=== PATIENT | female | born 1960 | race Caucasian/White ===

== ENCOUNTER 2017-11-09 10:58 | Emergency (ER) | payer BC ==
--- NOTE | 2017-11-09 11:13 | UC ---
Hand/Wrist HPI - HPI Summary HPI Summary: Patient comes to urgent care today with chief chief complaint of right index finger pain and distal joints after shutting finger in car door last night - History Of Current Complaint Chief Complaint: UCUpperExtremity Stated Complaint: FINGER INJURY Time Seen by Provider: 11/09/17 11:12 Hx Obtained From: Patient ?: No Mechanism Of Injury: Shut in car door Onset/Duration: Sudden Onset, Lasting Days - 1 Severity Initially: Moderate Severity Currently: Moderate Character Of Pain: Aching, Throbbing Aggravating Factor(s): Movement Alleviating Factor(s): Other - Got relief with one half a Tylenol with codeine this morning Associated Signs And Symptoms: Positive: Swelling, Redness Related History: Dominant Hand Right - Allergies/Home Medications Allergies/Adverse Reactions: Allergies Allergy/AdvReac Type Severity Reaction Status Date / Time Penicillins Allergy Hives Verified 11/09/17 11:13 Home Medications: Home Medications Acetaminop/Codeine 30 MG TAB* [Tylenol/Codeine 30 MG TAB*] 1 tab PO Q6H PRN 10/28 [History Confirmed 11/09/17] PMH/Surg Hx/FS Hx/Imm Hx Previously Healthy: Yes - Surgical History Surgical History: Yes Surgery Procedure, Year, and Place: Tib/Fib fracture repair, LAPAROSCOPIC PROCEDURES OF RT OVARY, - Family History Known Family History: Positive: None - Social History Occupation: Employed Full-time Lives: With Family Alcohol Use: Weekly Alcohol Amount: Couple of glasses a couple times a week Substance Use Type: None Review of Systems Constitutional: Negative Skin: Negative Eyes: Negative ENT: Negative Respiratory: Negative Cardiovascular: Negative Gastrointestinal: Negative Genitourinary: Negative Motor: Decreased ROM - distal right index finger Neurovascular: Negative Musculoskeletal: Negative, Arthralgia Neurological: Negative Psychological: Negative Is Patient Immunocompromised?: No All Other Systems Reviewed And Are Negative: Yes Physical Exam Triage Information Reviewed: Yes Appearance: Well-Appearing, No Pain Distress, Well-Nourished Vital Signs Reviewed: Yes Eye Exam: Normal Eyes: Positive: Conjunctiva Clear ENT Exam: Normal ENT: Positive: Normal ENT inspection, Hearing grossly normal. Negative: Trismus , Muffled voice, Hoarse voice, Dental tenderness, Sinus tenderness Dental Exam: Normal Neck exam: Normal Neck: Positive: Supple, Nontender, No Lymphadenopathy Respiratory Exam: Normal Respiratory: Positive: Normal breath sounds, No respiratory distress, No accessory muscle use Cardiovascular Exam: Normal Cardiovascular: Positive: RRR, Pulses Normal, Brisk Capillary Refill Musculoskeletal Exam: Other Musculoskeletal: Positive: Strength Limited @, ROM Limited @ - right index finger dip, Edema @ - right distal second finger Neurological Exam: Normal Neurological: Positive: Alert, Muscle Tone Normal Psychological Exam: Normal Skin Exam: Normal Diagnostics - Radiology No standard instances Xray Interpretation: Positive (See Comments) - Nondisplaced dorsal plate fracture of the DIP joint of the second finger right hand Radiology Interpretation Completed By: ED Physician, Radiologist Hand/Wrist Course/Dx - Course Course Of Treatment: Rest ice elevation splint ibuprofen for mild to moderate pain, codeine for more severe pain follow up with Dr. Chung orthopedics in 5 days - Differential Dx/Diagnosis Provider Diagnoses: non displaced dip dorsal plate fracture, elevated blood pressure without diagnosis of hypertension Discharge - Discharge Plan Condition: Stable Disposition: HOME Prescriptions: Acetaminop/Codeine 30 MG TAB* [Tylenol/Codeine 30 MG TAB*] 1 tab PO Q6H PRN #10 tab MDD 4 PRN Reason: Pain Patient Education Materials: Finger Fracture (ED), Hypertension (ED), R.I.C.E. Treatment (ED) Referrals: Frantz Bernardo MD [Primary Care Provider] - 2 Weeks Ilda Chung MD [Medical Doctor] - 5 Days
[2017-11-09 11:22] VITALS: BP 140/87
--- NOTE | 2017-11-09 11:47 | RAD ---
Indication: Right finger injury. 3 views of the right index finger demonstrates fracture through the base of the distal phalanx. No significant displacement is noted. This is most prominent in the dorsal plate of the proximal and of the distal phalanx. IMPRESSION: There is likely dorsal plate fracture proximal end of the distal phalanx of the index finger.
== END 2017-11-09 12:10 | disposition home or self-care (01) ==
LOC: UCEAST 10:58
DX: S67.190A Crushing injury of right index finger, initial encounter (principal); W23.0XXA Caught, crushed, jammed, or pinched between moving objects, initial encounter; Y93.9 Activity, unspecified; Y92.810 Car as the place of occurrence of the external cause; R03.0 Elevated blood-pressure reading, without diagnosis of hypertension; Z88.0 Allergy status to penicillin
CPT/HCPCS: 73140; 99213; G0463

== ENCOUNTER 2018-06-24 10:07 | Observation (INO) | payer BC, OTHER ==
--- NOTE | 2018-06-24 10:31 | ED ---
HPI Chest Pain - HPI Summary HPI Summary: A 57 y/o F presents to ED with c/o intermittent episodes of CP this . She saw her PCP this AM who did an EKG and then referred her to ED for further evaluation. Pt states over the weekend, she was in bed going to sleep and noticed irregular heartbeats and lightheadedness. The episode lasted about 20 minutes and then spontaneously resolved. She exercised the following morning, and experienced palpitations and SOB within the first 5 minutes which is completely unusual for her. Denies wheezing, SALDIVAR, blurry vision, neck pain, abd pain, v/d, rashes. Pt took baby aspirin daily for past two days. She denies having prior episodes of CP. She has had episodes of GERD, but states these sx are not that. Pt travelled by plane and hiked to high elevations last week. She also states a recent cold but it was not severe and it has since resolved. Non- smoker. - History of Current Complaint Chief Complaint: EDChestPainROMI Hx Obtained From: Patient Onset/Duration: Started Days Ago, Still Present - mildly Timing: Intermittent, Lasting Minutes - 20 mins Initial Severity: Moderate Current Severity: Mild Pain Intensity: 2 Pain Scale Used: 0-10 Numeric Character: Dull/Aching Associated Signs and Symptoms: Positive: Shortness of Breath, Lightheadedness, Palpitations, Other: - neg: neck pain, rash. Negative: Vision Changes, Headaches, Abdominal Pain, Vomiting, Wheezing - Allergy/Home Medications Allergies/Adverse Reactions: Allergies Allergy/AdvReac Type Severity Reaction Status Date / Time Penicillins Allergy Nausea Verified 06/24/18 10:17 Home Medications: Home Medications Eletriptan HBr [Relpax] 20 mg PO DAILY PRN 06/24/18 [History Confirmed 06/24/18] diazePAM [Diazepam] 5 mg PO DAILY PRN 06/24/18 [History Confirmed 06/24/18] PMH/Surg Hx/FS Hx/Imm Hx Previously Healthy: Yes Endocrine/Hematology History: Denies: Hx Diabetes, Hx Thyroid Disease Cardiovascular History: Denies: Hx Hypertension Respiratory History: Denies: Hx Asthma, Hx Chronic Obstructive Pulmonary Disease (COPD) - Cancer History Hx Chemotherapy: No Hx Radiation Therapy: No - Surgical History Surgery Procedure, Year, and Place: Tib/Fib fracture repair, LAPAROSCOPIC PROCEDURES OF RT OVARY, Infectious Disease History: No Infectious Disease History: Reports: Hx Shingles Denies: Hx Hepatitis, Hx Human Immunodeficiency Virus (HIV), History Other Infectious Disease, Traveled Outside the [place] in Last 30 Days - Family History Known Family History: Positive: Other - pos: breast CA - Social History Occupation: Employed Full-time Lives: With Family Alcohol Use: Weekly Alcohol Amount: Couple of glasses a couple times a week Substance Use Type: Reports: None Smoking Status (MU): Former Smoker Review of Systems Negative: Fever Negative: Blurred Vision Negative: Epistaxis Positive: Palpitations, Chest Pain Positive: Shortness Of Breath. Negative: Other - neg: wheezing Negative: Abdominal Pain, Vomiting, Diarrhea Negative: Arthralgia - neck pain Negative: Rash Neurological: Other - pos: lightheadedness Negative: Headache Psychological: Normal All Other Systems Reviewed And Are Negative: No Physical Exam - Summary Physical Exam Summary: Appearance: Alert, conversive, nontoxic appearing Skin: Warm, dry, no mottling, no rashes, no contusions HEENT: EOMI, PERRL, moist mucous membranes Neck: No masses on the neck, supple Respiratory: Clear to auscultation, breath sounds present, no rales, no rhonchi , no wheezes Cardiovascular: RRR, pulses are symmetrical in both lower and upper extremities Abdomen: Soft, non-tender Bowel Sounds: Present Musculoskeletal: No CVA tenderness, no obvious deformity, moving all extremities in a grossly normal manner Neurological: A&Ox3, CN II-XII Intact, moving all extremities symmetrically Psychiatric: Normal affect and mood Triage Information Reviewed: Yes Vital Signs On Initial Exam: Initial Vitals Temp Pulse Resp BP Pulse Ox 97.3 F 63 16 169/82 100 06/24/18 10:13 06/24/18 10:13 06/24/18 10:13 06/24/18 10:13 06/24/18 10:13 Vital Signs Reviewed: Yes Diagnostics - Vital Signs Vital Signs Temp Pulse Resp BP Pulse Ox 06/24/18 10:13 97.3 F 63 16 169/82 100 - Laboratory Result Diagrams: 06/24/18 10:38 06/24/18 10:38 Lab Statement: Any lab studies that have been ordered have been reviewed, and results considered in the medical decision making process. - Radiology CXR Xray Interpretation: No Acute Changes - IMPRESSION: Negative for acute dz. ED provider has reviewed this report. Radiology Interpretation Completed By: Radiologist - EKG 1035 Cardiac Rate: NL - 61 bpm EKG Rhythm: Sinus Rhythm ST Segment: Normal EKG Interpretation: Nml QRS. Nml QTc. Nml axis. Chest Pain Course/Dx - Course Course Of Treatment: Pt is a healthy 57 y/o F referrefed from PCP presenting with c/o intermittent episodes of CP this weekend The episode of palpitations and lightheadedness upon going to bed which lasted about 20 minutes and then spontaneously resolved. She exercised the following morning, and experienced palpitations and SOB within the first 5 minutes which is completely unusual for her. D-dimer is negative, trop is negative, CXR is negative. - Diagnoses Provider Diagnoses: Chest pain - Provider Notifications Discussed Care Of Patient With: Pam Madrigal - hospitalist Time Discussed With Above Provider: 11:31 Instructed by Provider To: Admit As Inpatient Discharge - Sign-Out/Discharge Documenting (check all that apply): Patient Departure - ADM - Discharge Plan Condition: Stable Disposition: ADMITTED TO [facility] Referrals: Frantz Bernardo MD [Primary Care Provider] - - Billing Disposition and Condition Condition: STABLE Disposition: Admitted to [facility] - Attestation Statements Document Initiated by Scribe: Yes Documenting Scribe: Johnie Mendieta Provider For Whom Scribe is Documenting (Include Credential): Dr. Claudia Colvin MD Scribe Attestation: Johnie Hernandez, scribed for Dr. Claudia Colvin MD on 06/24/18 at 1153. Scribe Documentation Reviewed: Yes Provider Attestation: The documentation as recorded by the Johnie cooper accurately reflects the service I personally performed and the decisions made by me, Dr. Claudia Colvin MD
[2018-06-24 10:54] LABS: ABS Basophils 0 10^3/ul (0-0.2); ABS Eosinophils 0.1 10^3/ul (0-0.6); ABS Lymphocytes 1.5 10^3/ul (1.0-4.8); ABS Monocytes 0.4 10^3/ul (0-0.8); ABS Neutrophils 3.3 10^3/ul (1.5-7.7); ABS Nucleated RBC 0 10^3/ul; Eosinophil % 2.1 % (0-6); Hematocrit 41 % (35-47); Lymphocyte % 27.2 % (25-47); Mean Corpuscular HGB Conc 34 g/dl (31-36); Mean Corpuscular Hemoglobin 31 pg (27-31); Mean Corpuscular Volume 91 fL (80-97); Mean Platelet Volume 8.2 um3 (7.4-10.4); Nucleated Red Blood Cells % 0.2; Platelet Count 228 10^3/ul (150-450); Red Blood Count 4.54 10^6/ul (4.00-5.40); Red Cell Distribution Width 13 % (10.5-15); White Blood Count 5.4 10^3/ul (3.5-10.8)
--- NOTE | 2018-06-24 11:00 | RAD ---
INDICATION: Chest pain. COMPARISON: Comparison is made with a prior chest x-ray study from October 29, 2007. TECHNIQUE: A portable view of the chest was obtained. FINDINGS: Cardiac and mediastinal contours appear to be within normal limits. The lungs are clear. No pleural effusion or pneumothorax is seen. IMPRESSION: NO EVIDENCE FOR ACUTE DISEASE.
[2018-06-24 11:08] LABS: EGFR Non-African American 84.3 (>60)
[2018-06-24] MEDS ORDERED: Aspirin TAB* 325 MG PO ONE (11:15)
[2018-06-24] MEDS ORDERED: Aspirin EC TAB* 81 MG TAB.EC ONE (12:16)
[2018-06-24] MEDS ORDERED: Morphine INJ* 4 MG/ML 1 ML SYRINGE (NEW SYRINGE VERSION) IV PRN (12:28)
[2018-06-24] MEDS ORDERED: Albuterol 2.5 MG/3 ML NEB.SOL* (0.083%) INH PRN (12:28)
[2018-06-24] MEDS ORDERED: Al Hydrox/Mg Hydrox/Simet LIQ* 30 ML UDC PO PRN (12:28)
[2018-06-24] MEDS ORDERED: Ondansetron INJ* 2 MG/ML VIAL IV PRN (12:28)
[2018-06-24] MEDS ORDERED: Magnesium Hydroxide LIQ* 30 ML UDC PO PRN (12:28)
[2018-06-24] MEDS ORDERED: Acetaminophen TAB* 325 MG PO PRN (12:28)
[2018-06-24] MEDS ORDERED: ELETRIPTAN HBR 20 MG PO PRN (12:31)
[2018-06-24] MEDS ORDERED: Diazepam TAB(*) 5 MG PO PRN (12:31)
[2018-06-24] MEDS ORDERED: Nitroglycerin TAB 0.4 MG* 0.4 MG TAB SL ONE (12:32)
--- NOTE | 2018-06-24 15:39 | HP ---
AMENDED REPORT NOW INCLUDES COSIGNER DESIGNATION CC: Dr. Bernardo.* ADMISSION HISTORY AND PHYSICAL: DATE OF ADMISSION: 06/24/18 PATIENT OF ADMITTING HOSPITALIST: Dr. Pam Madrigal.* (DICTATED BY JANIE DIAZ) PRIMARY CARE PROVIDER: Dr. Frantz Bernardo. CHIEF COMPLAINT: Chest pain. HISTORY OF PRESENT ILLNESS: Mrs. Mejia is a 57-year-old female with past medical history significant for intermittent asthma, as well as migraine headaches, who presented to the emergency room today with 3 to 4 days history of intermittent chest pain. The patient notes that she has experienced some chest tightness on and off, usually starts few minutes during her workouts. She describes it as chest tightness localized to the substernal area without any radiation, associated with shortness of breath and feeling as she was "winded" after few minutes of exercise. She is a relatively healthy female, who works out on a regular basis and she has never had any similar symptoms in the past. She also noticed some palpitation and all her symptoms usually subsided when she sits down and rests for a few minutes. She has no prior history of coronary artery disease or myocardial infarction. She denied any family history of heart attacks or coronary artery disease as well. She only has history of asthma, for which it is very intermittent and she has not been taken any inhalers for it on a regular basis. She also has history of migraine headaches, for which she takes a triptan treatment as needed. Given her symptoms, she presented to the emergency room for evaluation. She had laboratory workup that revealed normal CBC and normal chemistry panel, as well as a negative troponin. Her EKG showed a sinus rhythm without any evidence of ST changes. Given her chest pain that usually triggered by exertion. We were asked to see the patient for further evaluation and to consider admission for observation and stress testing tomorrow. PAST MEDICAL HISTORY: As mentioned above, significant for asthma, migraine. PAST SURGICAL HISTORY: Significant for: 1. Right tib-fib fracture repair with a héctor. 2. Left breast lumpectomy with benign findings. 3. Laparoscopy for ovarian cyst x2 back in the late 80s. CURRENT MEDICATIONS: Her medications at home include: 1. Acetaminophen/codeine 30 mg tablets one tablet p.o. b.i.d. p.r.n. for pain or headache. 2. Diazepam 5 mg p.o. daily. 3. Eletriptan 20 mg p.o. daily as needed for migraine headaches. ALLERGIES: She is allergic to PENICILLIN, that causes nausea. FAMILY HISTORY: Reviewed and noncontributory. 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 She is and has three children, all grown up and out of town. She is a nonsmoker, who drinks alcohol occasionally and caffeine intake is minimal. She wishes to be a full code and listed her as her healthcare proxy. REVIEW OF SYSTEMS: See HPI, otherwise 12 points review of systems were examined , they were essentially negative. PHYSICAL EXAMINATION GENERAL: She is a pleasant healthy-appearing middle-aged female, in no acute distress or discomfort at the time of admission. VITAL SIGNS: Reveal temperature of 97.3, pulse of 63, blood pressure of 140/87 , respiration of 16 with O2 sat of 100% on room air. HEENT: Head is normocephalic, atraumatic. Sclerae are anicteric. PERRLA. EOMs intact. Oropharynx is pink and moist. NECK: Supple. Trachea midline. No cervical adenopathy, thyromegaly or JVD. LUNGS: Clear to auscultation bilaterally. HEART: Regular rate and rhythm. Normal S1 and S2 without rubs, murmurs, or gallops. BREASTS: Exam deferred at this time. BACK: Normal curvature. No CVA tenderness. ABDOMEN: Soft, nontender, nondistended. No hernias, masses, or hepatosplenomegaly. Bowel sounds were normoactive in all quadrants. EXTREMITIES: Without cyanosis, clubbing or edema. NEUROLOGIC: She is awake, alert, and oriented x3. Handgrip is equal bilaterally and tongue is midline. Sensation is intact throughout. RECTAL: Exam deferred at this time. LABORATORY WORKUP: CBC with a white count of 5,000, hemoglobin 14, hematocrit 41, and platelets of 228. Her chemistry panel essentially within normal limits. LFTs within normal limits. C-reactive protein 2.1. Troponin is 0. TSH is 1.25. ACCESSORY DIAGNOSTIC DATA: Chest x-ray revealed no acute cardiopulmonary issues and EKG without any ST changes. ASSESSMENT: A 57-year-old relatively healthy female with past medical history of migraine headaches and intermittent asthma, who presents to the emergency room with intermittent exertional chest pain for the last 3 to 4 days, found to have a flat troponin and no EKG changes will be admitted for observation status under hospitalist services to telemetry unit for the following assessment and plan. 1. Chest pain. The patient will be admitted to rule out acute coronary syndrome. I will trend her troponin, repeat EKG in the morning and provide oxygen supplementation as needed. She is chest pain free at rest, but will provide morphine and nitroglycerin as needed if she did experience any chest pain. All her labs were normal and I will go ahead and check her lipid panel tomorrow as long as she is fasting. We will plan for a stress test tomorrow and follow her up accordingly. 2. History of asthma. The patient experienced no wheezing or any asthma exacerbation. However, I will continue to cover her with albuterol nebulizer as needed. 3. History of migraine headaches. I will continue her home medications as needed if she did experience any migraines 4. DVT prophylaxis. She is at moderate risk and will be covered with SCDs. 5. Code status. She wishes to be a full code. 6. Disposition. Admit to telemetry for trending troponins and repeat EKG and a stress test in the morning, rule out acute coronory syndrome. TIME SPENT: Approximately 60 minutes were spent admitting this patient for which greater than 50% of this time on taking history and performing physical exam. I went on and discussed the case with my attending, who agreed to plan of care and will follow her up accordingly. JANIE DIAZ [id number]/[facility] #: [id number] TOM
[2018-06-25 06:53] LABS: ABS Basophils 0 10^3/ul (0-0.2); ABS Eosinophils 0.2 10^3/ul (0-0.6); ABS Lymphocytes 1.7 10^3/ul (1.0-4.8); ABS Monocytes 0.4 10^3/ul (0-0.8); ABS Neutrophils 2.9 10^3/ul (1.5-7.7); ABS Nucleated RBC 0 10^3/ul; Eosinophil % 3.2 % (0-6); Hematocrit 40 % (35-47); Hemoglobin 13.6 g/dl (12.0-16.0); Lymphocyte % 32.5 % (25-47); Mean Corpuscular HGB Conc 34 g/dl (31-36); Mean Corpuscular Hemoglobin 31 pg (27-31); Mean Corpuscular Volume 90 fL (80-97); Mean Platelet Volume 8.3 um3 (7.4-10.4); Nucleated Red Blood Cells % 0.1; Platelet Count 231 10^3/ul (150-450); Red Blood Count 4.43 10^6/ul (4.00-5.40); Red Cell Distribution Width 13 % (10.5-15); White Blood Count 5.2 10^3/ul (3.5-10.8)
[2018-06-25 06:57] LABS: EGFR Non-African American 84.3 (>60)
[2018-06-25 10:15] VITALS: BP 119/69
--- NOTE | 2018-06-25 10:47 | RAD ---
HISTORY: chest pain COMPARISONS: None TECHNIQUE: A 1 day stress/rest myocardial perfusion study was performed, with exercise stress. The exercise portion was performed using the Anish protocol, for a total METs of 12.8 . The stress portion was monitored by Dr. Miranda. Gated SPECT imaging was performed, with CT-based attenuation correction DOSE: Stress: Technetium 99m tetrofosmin, 25.4 millicuries, injected at 9:00 AM on June 25, 2018 Rest: Technetium 99m tetrofosmin, 10.83 millicuries, injected at 6:30 AM on June 25, 2018 Pharmacologic agent: None FINDINGS: CARDIAC MONITORING: Peak heart rate of 1 65 bpm, 102% of predicted. EF: 75 % TID: 0.92 MOTION: Normal motion, with normal wall thickening. PERFUSION: There are no fixed or reversible perfusion defects. OTHER: None IMPRESSION: NO FIXED OR REVERSIBLE PERFUSION DEFECTS. ASSESSMENT: LOW RISK. Based on imaging criteria from ACC/AHA 2002. Guideline Update for the Management of Patient's with Chronic Stable Angina, table 23. Noninvasive Risk Stratification.
--- NOTE | 2018-06-26 04:49 | DS ---
AMENDED REPORT NOW INCLUDES ADDENDUM AND COSIGNER DESIGNATION CC: Dr. Frantz Bernardo * DISCHARGE SUMMARY: DATE OF ADMISSION: 06/24/18 DATE OF DISCHARGE: 06/25/18 PRIMARY CARE PROVIDER: Dr. Frantz Bernardo. ATTENDING PHYSICIAN: Dr. Lopez * (dictated by Katy Connor NP). PRIMARY DIAGNOSIS: Chest pain. SECONDARY DIAGNOSES: 1. Asthma. 2. Migraines. CONSULTATIONS WHILE IN THE HOSPITAL: There were no consultations. PROCEDURES WHILE IN THE HOSPITAL: No procedures. STUDIES WHILE IN THE HOSPITAL: 1. EKG: Unremarkable. 2. Stress test: Low risk based on imaging criteria from ACC/AHA, 2002. 3. Nuclear stress test: Low risk. 4. Chest x-ray: No evidence for acute disease. DISCHARGE MEDICATIONS: There were no new medications added to the patient's regimen. Continued home medications: 1. Diazepam 5 mg p.o. daily p.r.n. 2. Eletriptan 20 mg p.o. daily p.r.n. 3. Tylenol with Codeine 30 mg tabs 1 tab p.o. b.i.d. p.r.n. Changed home medications: No home medications were changed. Discontinued home medications: No medications were discontinued. HISTORY OF PRESENT ILLNESS/HOSPITAL COURSE: Ms. Mejia is a 57-year-old female with a past medical history of asthma and migraines, who presented to the ED on 06/24/18 with complaints of chest pain. Please see history and physical by JANIE Park, for complete summary of the events leading up to hospitalization; but in short, the patient was admitted for chest pain after experiencing some chest tightness on and off on Sunday during her workout. The patient has no prior history of coronary artery disease or myocardial infarction. She reports a healthy well-balanced vegetarian diet. She reports routine exercise without difficulty. She also mentions she can usually hike very strenuous trails with elevation without difficulty. The patient reports she had the intermittent episodes of chest pressure on Sunday, but was symptom -free on Sunday and Sunday, but was referred to the ED after being evaluated by her PCP, who did an EKG and was concerned about possible changes in EKG. While in the ED, chest x-ray was obtained and negative. D-dimer and trop were also negative. EKG interpretation from ED revealed normal QRS, normal QTc, and normal axis. Dr. Madrigal was consulted and the patient was admitted on OBV status. During this hospitalization, the patient was symptom-free, did not have any reoccurrence of the chest pain, shortness of breath, or palpitations. Vital signs remained stable. The patient had an unremarkable exercise and nuclear stress test. The patient also had repeat EKGs, which were unremarkable. In addition, labs were repeated this morning and were as follows: WBC 5.2, RBC 4.43, hemoglobin 13.6, hematocrit 40, platelet count 231. Sodium 141, potassium 4.1, chloride 109, carbon dioxide 27, creatinine 0.71, glucose 93. Triglycerides 114, cholesterol 200, LDL 115, HDL 62.3. Troponins during hospital stay remained 0.00. TSH 1.25. Ms. Mejia is stable for discharge to home. Vital signs are as follows: BP 119/69, HR 66, RR 16, O2 sat 99% on room air, temp 98.1. DISCHARGE PLAN: Ms. Mejia will be discharged to home. ACTIVITY: As tolerated. DIET: Regular. The patient to resume home medications as ordered by PCP. Education included continuing regular exercises, eating heart-healthy diet, reducing stress. Follow up with primary care in 1 week. The patient should return to the ER or the nearest hospital if you experience any worsening of symptoms, shortness of breath, chest pain, lightheadedness, dizziness, chest discomfort, high fevers, chills, night sweats, loss of consciousness, or any other worrisome signs or symptoms. This is a summarized report of the patient's medical stay. For further details , please see the entire medical record. TIME SPENT: Approximately 45 minutes were spent on this discharge, greater than half that time was spent [id number] with the patient discussing discharge plans and instructions. The plan was also discussed with my attending, Dr. Lopez, who is in agreement with the plan. KATY CONONR NP DISCHARGE SUMMARY: ADDENDUM: Please note that Mrs. Mejia is a 57-year-old female who presented to the hospital complaining of chest pain. Her nuclear cardiac stress test was of low probability and the patient is being discharged home. For further details of the patient's presentation and plan, please refer to Katy Connor, nurse practitioner's dictation with which I agree. KRYS LOPEZ MD [id number]/[facility] #: [id number] Yoselin [id number]/[facility] #: [id number] TOM
--- NOTE | 2018-06-26 13:28 | DS ---
DISCHARGE SUMMARY: ADDENDUM: Please note that Mrs. Mejia is a 57-year-old female who presented to the hospital complaining of chest pain. Her nuclear cardiac stress test was of low probability and the patient is being discharged home. For further details of the patient's presentation and plan, please refer to Loretta Bills, nurse practitioner's dictation with which I agree. KRYS CASPER MD [id number]/[facility] #: [id number] MTDD
== END 2018-06-25 11:45 | disposition home or self-care (01) ==
LOC: ED 10:07 → MEDTELE 11:30
PROVIDERS: ADMIT Hospitalist; ATTEND Internal Medicine
DX: R07.9 Chest pain, unspecified (principal); J45.909 Unspecified asthma, uncomplicated; G43.909 Migraine, unspecified, not intractable, without status migrainosus; Z88.0 Allergy status to penicillin; Z87.81 Personal history of (healed) traumatic fracture; R00.2 Palpitations; R42 Dizziness and giddiness; R06.02 Shortness of breath
CPT/HCPCS: 36415; 71045; 78452; 80048; 80053; 80061; 83605; 83880; 84443; 84484; 85025; 85379; 93005; 93017; 96374; 96375; 99283; A9270-GY; A9502; G0378

== ENCOUNTER 2018-12-03 11:49 | Emergency (ER) | payer BC ==
[2018-12-03 12:19] VITALS: BP 150/104
--- NOTE | 2018-12-03 12:21 | UC ---
Hip/Pelvis Pain - HPI Summary HPI Summary: 58 yo female presents with RIGHT hip pain. She tells me that this morning she was [place] [employer] and fell onto her right hip. Was able to get to her feet. Since that time has been painful. She has not taken anything OTC for her pain. She is ambulatory without assistance, but does have a significant limp. Denies numbness or tingling. - History Of Current Complaint Chief Complaint: UCLowerExtremity Stated Complaint: HIP INJURY Time Seen by Provider: 12/03/18 12:20 Hx Obtained From: Patient Onset/Duration: Sudden Onset Severity Initially: Moderate Severity Currently: Moderate Pain Intensity: 8 Pain Scale Used: 0-10 Numeric - Allergies/Home Medications Allergies/Adverse Reactions: Allergies Allergy/AdvReac Type Severity Reaction Status Date / Time Penicillins Allergy Nausea Verified 12/03/18 12:19 PMH/Surg Hx/FS Hx/Imm Hx Neurological History: Migraine Psychological History: Anxiety - Surgical History Surgical History: Yes Surgery Procedure, Year, and Place: Tib/Fib fracture repair, LAPAROSCOPIC PROCEDURES OF RT OVARY, - Family History Known Family History: Positive: None, Other - pos: breast CA - Social History Occupation: Employed Full-time Lives: With Family Alcohol Use: Weekly Alcohol Amount: 4-6 Substance Use Type: None Smoking Status (MU): Former Smoker Type: Cigarettes Length of Time of Smoking/Using Tobacco: 10 Have You Smoked in the Last Year: No - Immunization History Most Recent Tetanus Shot: states within 5 yrs Review of Systems All Other Systems Reviewed And Are Negative: Yes Constitutional: Positive: Negative Skin: Positive: Negative Respiratory: Positive: Negative Cardiovascular: Positive: Negative Neurovascular: Positive: Negative Musculoskeletal: Positive: Other: - Right hip pain Neurological: Positive: Negative Psychological: Positive: Negative Physical Exam - Summary Physical Exam Summary: GENERAL: NAD. WDWN. No pain distress. SKIN: No rashes, sores, lesions, or open wounds. NECK: Supple. FROM. Nontender. No lymphadenopathy. CHEST: CTAB. No r/r/w. No accessory muscle use. Breathing comfortably and in no distress. CV: RRR. Without m/r/g. Pulses intact. Cap refill <2seconds MSK: RIGHT HIP: Mild TTP about right hip trochanter and SI joint. FROM, pain worse with hip flexion and adduction. NEURO: Alert. Sensations intact B/L LEs L3-S1. Reflexes intact PSYCH: Age appropriate behavior. Triage Information Reviewed: Yes Vital Signs: Initial Vital Signs Temp 97.6 F 12/03/18 12:17 Pulse 73 12/03/18 12:17 Resp 18 12/03/18 12:17 BP 150/104 12/03/18 12:17 Pulse Ox 100 12/03/18 12:17 Vital Signs Reviewed: Yes Hip Injury Course/Dx - Course Course Of Treatment: XR: IMPRESSION: #. No radiographic evidence for RIGHT hip fracture. #. Mild bilateral hip joint osteoarthritis. Istop: Reference #: [id number] Discussed results with patient. Suspect contusion vs muscle strain. She was given toradol IM in the clinic. She is requesting tramadol for pain. She has norco at home, but says this makes her sleepy and cannot take this and work at the same time. She has taken tramadol in the past and this relieves her pain without making her sleepy or mentally altered. Will rx for a short supply and have her rest and apply heat/ice. F/u if symptoms do not improve. - Differential Dx/Diagnosis Provider Diagnosis: Contusion, hip Discharge - Sign-Out/Discharge Documenting (check all that apply): Patient Departure All imaging exams completed and their final reports reviewed: Yes - Discharge Plan Condition: Stable Disposition: HOME Prescriptions: traMADol TAB* [Ultram*] 50 mg PO Q12H PRN #6 tab MDD 2 PRN Reason: Pain Patient Education Materials: Contusion in Adults (ED), Hip Pain (ED) Referrals: Frantz Bernardo MD [Primary Care Provider] - Additional Instructions: If you develop a fever, shortness of breath, chest pain, new or worsening symptoms - please call your PCP or go to the ED. Your blood pressure was high at todays visit. Please see your primary provider within 4 weeks for recheck and re-evaluation. 1) Rest and apply heat/ice to your hip/buttocks for pain relief 2) May take tylenol for your discomfort in addition to the tramadol - Billing Disposition and Condition Condition: STABLE Disposition: Home
[2018-12-03] MEDS ORDERED: Ketorolac INJ* 60 MG/2 ML VIAL IM ONE (12:44)
== END 2018-12-03 12:55 | disposition home or self-care (01) ==
LOC: UCEAST 11:49
DX: S70.01XA Contusion of right hip, initial encounter (principal); Z88.0 Allergy status to penicillin; Z87.891 Personal history of nicotine dependence; W19.XXXA Unspecified fall, initial encounter; Y93.73 Activity, racquet and hand sports; Y92.9 Unspecified place or not applicable
CPT/HCPCS: 96372; 99212; G0463; J1885